=== PATIENT | male | born 1970 | race Caucasian/White ===

== ENCOUNTER 2017-07-27 09:44 | Emergency (ER) | payer OTHER ==
[~2017-07-27] VITALS: Ht 180.3 cm; Wt 72.6 kg
[~2017-07-27 09:44] MED LIST: HYDROXYZINE HCL25 MG PO; PROZAC10 MG PO; SEROQUEL200 MG PO
--- NOTE | 2017-07-27 21:55 | EKG ---
[facility] [address] [place], [place] [address] Signed Normal sinus rhythm Normal ECG No previous ECGs available Confirmed by ARMAAN BOOGIE MD ([id number] on 07/27/2017 9:55:26 PM Electronically Signed By: ARMAAN BOOGIE MD 07/27/17 2155 PATIENT NAME: IRENE ROBERTO JR Electrocardiogram DATE OF : 66 PHYSICIAN: ARAMAN BOOGIE MD REPORT #: [id number] REPORT IS CONFIDENTIAL AND NOT TO BE RELEASED WITHOUT AUTHORIZATION
== END 2017-07-27 10:23 | disposition home or self-care (01) ==
LOC: ED 09:44
DX: R07.9 Chest pain, unspecified (principal); Z79.899 Other long term (current) drug therapy
CPT/HCPCS: 93005; 93010; 99283

== ENCOUNTER 2018-02-11 14:55 | Emergency (ER) | payer OTHER ==
[~2018-02-11] VITALS: Ht 180.3 cm; Wt 68.0 kg
[2018-02-11] MEDS ORDERED: CATAPRES0.1 MG PO (15:09)
[2018-02-11] MEDS ORDERED: CHLORDIAZEPOXID25 MG PO (15:38)
== END 2018-02-11 15:55 | disposition home or self-care (01) ==
LOC: ED 14:55
DX: F10.129 Alcohol abuse with intoxication, unspecified (principal); K70.30 Alcoholic cirrhosis of liver without ascites; F31.9 Bipolar disorder, unspecified; F17.200 Nicotine dependence, unspecified, uncomplicated; Z88.8 Allergy status to other drugs, medicaments and biological substances; Z79.899 Other long term (current) drug therapy
CPT/HCPCS: 99283